=== PATIENT | male | born 2000 | race Caucasian/White ===

== ENCOUNTER 2022-10-26 08:55 | Emergency (ER) | payer OTHER ==
[~2022-10-26] VITALS: Ht 167.6 cm; Wt 65.3 kg
[2022-10-26 12:03] LABS: BASO % 0.6 % (0.0-1.0); EOS # 0.3 10^3/uL (0.0-0.5); HEMATOCRIT 47.9 % (42.0-52.0); LYMPH # 1.9 10^3/uL (1.5-5.0); MEAN CORPUSCULAR HEMOGLOBIN 30.1 pg (27.0-33.0); MEAN CORPUSCULAR HGB CONC 33.4 g/dl (32.0-36.5); MONO # 0.6 10^3/uL (0.0-0.8); MONO % 9.8 % (2.0-8.0); NEUTROPHILS # 3.4 10^3/uL (1.5-8.5); NEUTROPHILS % 54.4 % (36.0-66.0); PLATELET COUNT, AUTOMATED 220 10^3/uL (150-450); RED BLOOD COUNT 5.32 10^6/uL (4.30-6.10); WHITE BLOOD COUNT 6.2 10^3/uL (4.0-10.0)
[2022-10-26 12:29] LABS: ALBUMIN 4.3 G/DL (3.2-5.2); BILIRUBIN,DIRECT 0.3 MG/DL (<0.4); BILIRUBIN,TOTAL 0.6 MG/DL (0.3-1.2); TOTAL PROTEIN 7.5 G/DL (5.7-8.2)
[2022-10-26] MEDS ORDERED: ONDANSETRON 4MG 2ML VIAL IV ONE (12:35)
[2022-10-26] MEDS ORDERED: PANTOPRAZOLE 40MG VIAL IV ONE (12:35)
[2022-10-26] MEDS ORDERED: NS 1,000 ML IV ONE (12:35)
[2022-10-26] MEDS ORDERED: ONDA4TAB6 PO (14:12)
[2022-10-26] MEDS ORDERED: PSEU120T19 PO (14:12)
[2022-10-26] MEDS ORDERED: OMEP-173 PO (14:12)
[2022-10-26 14:17] VITALS: BP 127/61; TEMP 98.2; O2SAT 100
== END 2022-10-26 14:22 | disposition home or self-care (01) ==
LOC: M ED 08:55
DX: R11.2 Nausea with vomiting, unspecified (principal); R09.81 Nasal congestion; B34.8 Other viral infections of unspecified site
CPT/HCPCS: 80047; 80076; 83690; 83735; 85025; 87486; 87581; 87633; 87798; 96361; 96374; 96375; 99284; C9113; J2405